=== PATIENT | female | born 1940 | race Caucasian/White ===

== ENCOUNTER 2016-08-16 10:25 | Emergency (ER) | payer OTHER ==
[2016-08-16] MEDS ORDERED: ASPIRIN PO STA (10:38)
[2016-08-16 11:08] LABS: MANUAL DIFF NEEDED? NO
[2016-08-16 11:10] LABS: BASO% 0.3 % (0.0-0.8); EOS# 0.27 X1000 (0.0-0.7); EOS% 2.7 % (0.0-10.0); HEMOGLOBIN 13.8 g/dL (12.0-16.0); IMM GRAN# 0.05 X1000 (0.0-0.04); IMM GRAN% 0.5 % (0.0-0.5); LYMPH# 3.94 X1000 (1.2-3.4); LYMPH% 39.5 % (20.5-51.1); MCH 27.2 PG (27-31); MCHC 32.9 g/dL (33-37); MCV 82.8 FL (81-99); MONO# 0.96 X1000 (0.11-0.59); MONO% 9.6 % (1.7-9.3); MPV 9.6 FL (7.4-10.4); NEUT% 47.4 % (42.2-75.2); PLT 196 X1000 (130-400); RBC 5.07 XMIL (4.2-5.4)
--- NOTE | 2016-08-16 11:10 | ED EKG INTERP ---
EKG Interpretation - EKG Time of EKG reading by physician:: 10:45 EKG Read and Signed by:: Mitchell Snow EKG Interpretation (*Must complete 3 of following elements*): Abnormal Rate: 49 Rhythm: sinus bradycardia Comments: otherwise normal ECG Attestation - Scribe Verification/Attestation Scribe:: Alejandra Houston Acting as Scribe for:: Mitchell Snow Scribe documention review:: This chart was documented by a scribe and accurately reflects the service the provider performed and the decisions made by the provider.
--- NOTE | 2016-08-16 11:11 | EKG Report ---
Test Performed on : 08/16/2016 10:45:57 AM Test Reason : CHEST PAIN Blood Pressure : / mmHG Vent. Rate : 049 BPM Atrial Rate : 049 BPM P-R Int : 158 ms QRS Dur : 084 ms QT Int : 426 ms P-R-T Axes : 039 020 042 degrees QTc Int : 384 ms Sinus bradycardia. Otherwise normal ECG When compared with ECG of 19-DEC-2014 13:02, No significant change was found Unconfirmed Result
[2016-08-16] MEDS ORDERED: DUONEB (A & A) INH ONE (11:27)
--- NOTE | 2016-08-16 11:33 | PROVIDER DOCUMENTATION ---
HPI-Chest Pain - General Chief Complaint: Chest Pain Stated Complaint: SOB/CHEST PAIN Time Seen by Provider: 08/16/16 11:09 Source: patient Allergies/Adverse Reactions: Patient Allergies Allergy/AdvReac Type Severity Reaction Status Date / Time codeine AdvReac HIVES Verified 08/16/16 10:34 latex AdvReac HIVES Verified 08/16/16 10:34 Home Medications: Home Medication List Medication Instructions Recorded Confirmed Last Taken Type Losartan/Hydrochlorothiazide 1 each PO DAILY 12/19/14 12/20/14 08/16/16 History [Hyzaar 100-12.5 Tablet] Metformin [Glucophage] 500 mg PO 4XDAY 12/19/14 12/20/14 08/16/16 History Metoprolol Succinate E.r. [Toprol 12.5 mg PO BID 12/19/14 12/20/14 08/16/16 History Xl] Levothyroxine [Synthroid] 75 microgm PO DAILY #0 tablet 12/23/14 08/16/16 Rx Albuterol Sulfate Inhaler 2 puff INH [id number] #1 inhaler 08/16/16 Unknown Rx [Ventolin Hfa] EZETIMIBE/SIMVAstatin [Vytorin 1 each PO QHS 08/16/16 08/16/16 1 Day Ago History 10/20 mg] - History of Present Illness-CP Nature of Presenting Problem: 76 yo female sent to ER by Urgent Care for chest pain, shortness of breath, and dizziness for the past 2 days. She saw her PCP on 08/07/2016 and given abx/ medrol dose pack/nasal spray/cough medicine for bronchitis and flu. She has been coughing intermittently with sputum production. She denies fever. She also received a steroid injection into left ankle by Dr. Clifton 2 days ago. Location: reports: other (side of left chest) Chest Pain Radiation: reports: no radiation Quality of Pain: reports: aching Severity in ED: moderate Onset/Duration: 2 days ago Timing: still present Context/Activities at Onset: reports: none Modifying Factors: improves with: coughing (worsens) Associated Symptoms: reports: dizziness, shortness of breath, weakness Nitro Today/Relief: no nitro taken today Aspirin Treatment Today: no aspirin today Similar Symptoms Previously?: Yes Recently Seen Here or By Another Healthcare Provider: Yes Review of Systems - Adult - REVIEW OF SYSTEMS - ADULT Constitutional: reports: no symptoms reported Eyes: reports: no symptoms reported Ears, Nose, Mouth & Throat: reports: no symptoms reported Cardiovascular: reports: no symptoms reported Respiratory: reports: see HPI, cough, shortness of breath Gastrointestinal: reports: no symptoms reported Genitourinary: reports: no symptoms reported Musculoskeletal: reports: no symptoms reported Integumentary: reports: no symptoms reported Neurological: reports: see HPI, dizziness/vertigo Psychiatric: reports: no symptoms reported Endocrine: reports: no symptoms reported Hematologic/Lymphatic: reports: no symptoms reported Allergic/Immunologic: reports: no symptoms reported All Other Systems: Reviewed and Negative Past History - Adult - PAST MEDICAL HISTORY-ADULT Review of Records: reports: Old Records Reviewed, Nursing Assessment Review, Medications Reviewed, Social history reviewed & non-contributory. Cardiovascular: reports: HTN Respiratory: reports: asthma Endocrine/Immune: reports: Diabetes, thyroid disorder Diabetes Type: Type 2 - PRIOR SURGERIES/PROCEDURES Surgical/Procedure History: reports: hysterectomy, joint replacement (knee replacement), other (fistula sx) - IMMUNIZATION STATUS Childhood Immunizations: See Nurse Assessment Flu Vaccine: See Nurse Assessment - SOCIAL HISTORY Smoking: denies, non-smoker Substance Use: none/never, denies Living Situation: family Physical Exam-General - PHYSICAL EXAM-ADULT Initial Vital Signs Reviewed: Yes - CONSTITUTIONAL General Appearance: appears well, alert, no apparent distress - EYES Eyes: PERRL/EOMI, pink conjunctivae - HEAD, EARS, NOSE, MOUTH & THROAT HENMT: normocephalic/atraumatic, moist mucous membranes, normal ENT inspection, TMs normal - RESPIRATORY Respiratory: no respiratory distress, wheezing (in left lungs). negative: accessory muscle use - CARDIOVASCULAR Cardiovascular: normal peripheral pulses - GASTROINTESTINAL (ABDOMEN) Abdominal Exam: soft - MUSCULOSKELETAL Extremity: normal inspection, no pedal edema Peripheral Pulses: radial (R): 2+, radial (L): 2+, dorsalis-pedis (R): 2+, dorsalis-pedis (L): 2+ - SKIN Integumentary: normal color, normal turgor, warm/dry - NEUROLOGIC Neurologic: grossly normal - PSYCHIATRIC Psych/Mental Status: normal mood/affect, normal thought content, normal thought process, oriented x 3 Progress - PLAN OF CARE/RESULTS Progress/Plan/Lab Results: 1200-Discussed patient case with Dr. Snow he reviewed labs and agreed with CT for PE. 1440-Discussed results/labs/dx/tx/discharge and follow up instructions with patient; she verbalized understanding. Laboratory Tests 08/16/16 08/16/16 08/16/16 10:57 10:57 10:57 WBC RBC Hgb Hct MCV MCH MCHC RDW Std Deviation Plt Count MPV Immature Gran % (Auto) Neut % (Auto) Lymph % (Auto) Mccreary % (Auto) Eos % (Auto) Baso % (Auto) Immature Gran # (Auto) Neut # (Auto) Lymph # (Auto) Mccreary # (Auto) Eos # (Auto) Baso # (Auto) D-Dimer Sodium 135 L Potassium 4.2 Chloride 98 Carbon Dioxide 24 L Anion Gap 13 BUN 24 H Creatinine 0.7 Estimated GFR/1.73 m2 > 60 BUN/Creatinine Ratio 34 Glucose 123 H Calculated Osmolality 276 Calcium 8.8 Magnesium 2.0 Total Bilirubin 0.30 AST 21 ALT 19 Alkaline Phosphatase 97 Creatine Kinase 47 Troponin T < 0.010 Cal-J-Glyqnbwskel Pept 163 Total Protein 6.3 Albumin 3.9 Globulin 2.0 Albumin/Globulin Ratio 2.0 08/16/16 08/16/16 08/16/16 10:57 10:57 13:35 WBC 9.97 RBC 5.07 Hgb 13.8 Hct 42.0 MCV 82.8 MCH 27.2 MCHC 32.9 L RDW Std Deviation 14.2 Plt Count 196 MPV 9.6 Immature Gran % (Auto) 0.5 Neut % (Auto) 47.4 Lymph % (Auto) 39.5 Mccreary % (Auto) 9.6 H Eos % (Auto) 2.7 Baso % (Auto) 0.3 Immature Gran # (Auto) 0.05 H Neut # (Auto) 4.72 Lymph # (Auto) 3.94 H Mccreary # (Auto) 0.96 H Eos # (Auto) 0.27 Baso # (Auto) 0.03 D-Dimer 0.63 H Sodium Potassium Chloride Carbon Dioxide Anion Gap BUN Creatinine Estimated GFR/1.73 m2 BUN/Creatinine Ratio Glucose Calculated Osmolality Calcium Magnesium Total Bilirubin AST ALT Alkaline Phosphatase Creatine Kinase 51 Troponin T Spg-Y-Pakfrwkaudl Pept Total Protein Albumin Globulin Albumin/Globulin Ratio 08/16/16 13:35 WBC RBC Hgb Hct MCV MCH MCHC RDW Std Deviation Plt Count MPV Immature Gran % (Auto) Neut % (Auto) Lymph % (Auto) Mccreary % (Auto) Eos % (Auto) Baso % (Auto) Immature Gran # (Auto) Neut # (Auto) Lymph # (Auto) Mccreary # (Auto) Eos # (Auto) Baso # (Auto) D-Dimer Sodium Potassium Chloride Carbon Dioxide Anion Gap BUN Creatinine Estimated GFR/1.73 m2 BUN/Creatinine Ratio Glucose Calculated Osmolality Calcium Magnesium Total Bilirubin AST ALT Alkaline Phosphatase Creatine Kinase Troponin T < 0.010 Znt-F-Zpcnscxmlyx Pept Total Protein Albumin Globulin Albumin/Globulin Ratio Orders Category Date Time Status Cardiac Monitoring DIRECTED Care 08/16/16 10:38 Active Oxygen Therapy- ED Nursing DIRECTED Care 08/16/16 10:38 Active Saline Loc NOW Care 08/16/16 10:38 Active ANGIOGRAM/PULMONARY ARTERIES [CT] Stat Exams 08/16/16 12:08 Draft CHEST-2 VIEWS [RAD] Stat Exams 08/16/16 10:38 Draft CBC WITH ELECTRONIC DIFF [HEME] Stat Lab 08/16/16 10:57 Completed CK PROFILE [SP CHEM] Stat Lab 08/16/16 10:57 Completed CK PROFILE [SP CHEM] Stat Lab 08/16/16 13:35 Completed COMPREHENSIVE METABOLIC PANEL [CHEM] Stat Lab 08/16/16 10:[address] D-DIMER PL [COAG] Stat Lab 08/16/16 10:57 Completed MAGNESIUM [CHEM] Stat Lab 08/16/16 10:57 Completed PRO B-NATRIURETIC PEPTIDE Stat Lab 08/16/16 10:57 Completed TROPONIN T Stat Lab 08/16/16 10:57 Completed TROPONIN T Stat Lab 08/16/16 13:35 Completed 0.9% Sodium Chloride Inj [Ns] 500 ml Med 08/16/16 12:08 Discontinued IV 999 mls/hr Albuterol 2.5MG/Ipratrop 0.5MG [Duoneb (A & A)] Med 08/16/16 11:27 Discontinued 6 ml INH NOW ONE Aspirin Med 08/16/16 10:38 Discontinued 325 mg PO STAT STA Aerosol Treatments Routine Oth 08/16/16 11:27 Active Aerosol Treatments Stat Oth 08/16/16 11:27 Active EKG [EKG] Stat Ther 08/16/16 10:38 Draft EKG [EKG] Stat Ther 08/16/16 12:52 Draft Vital Signs - 24 hr 08/16/16 08/16/16 10:30 12:15 Temperature 97 F L Pulse Rate 54 L 51 L Respiratory 18 18 Rate Blood Pressure 167/052 O2 Sat by Pulse 99 98 Oximetry - REASSESSMENT Reassessment #1 Time Reassessed: 14:40 (improved breath sounds bilaterally) Status: improving Reassessment Comment: patient feels better post nebs - XRAY 1 XRAY Study: Chest Impression: Normal XRAY Interpretation: Interpreted by Dr. Stack - CT/MRI 1 CT Study: Angiogram Impression: Normal (no acute disease) CT Results: Interpreted by Dr. Stack Departure - Departure Time of Disposition Order: 14:49 DIAGNOSIS: Shortness of breath, Bronchitis, Sinus congestion, Ear ache Disposition: HOME 01 Certified Medical Emergency: Emergent Condition: Fair Additional Instructions: Follow up with PCP next week. Use inhaler for shortness of breath. Use nasal spray. ED Follow Up Instructions: You have been treated by a care provider in the Emergency Department. These instructions are being provided to you so you can have an understanding of how to care for yourself upon discharge. Upon discharge from the Emergency Department, you are responsible for making arrangements for follow-up care by a physician of your choice. Take all prescribed medications as directed. Return to the Emergency Department immediately for any new or worsening symptoms. You may call the Physician Referral phone number at [phone] to obtain a list of Physicians who are taking new patients. Prescriptions: Albuterol Sulfate Inhaler [Ventolin Hfa] 2 puff INH [id number] #1 inhaler Referrals: Sky Ramírez MD [Primary Care Provider] - Attestation - Physician/ [facility] Attestation Patient care was provided by Advanced Practice Provider:: Yes Advanced Practice Provider:: Ashly Anaya Advanced Practice Provider documentation review:: The Mid-level provider documentation, treatment plan and medical decision making was reviewed by the physician who agrees with all treatment and medical decision making by the MLP.
[2016-08-16 11:42] LABS: AGAP 13; ALBUMIN 3.9 g/dL (3.5-5.0); ALKALINE PHOSPHATASE 97 U/L (32-104); BUN 24 mg/dL (8-22); CALCIUM 8.8 mg/dL (8.8-10.2); CHLORIDE 98 mmol/L (98-107); CK PROFILE 47 U/L (24-173); COSMO 276; GOT 21 U/L (10-30); GPT 19 U/L (10-36); POTASSIUM 4.2 mmol/L (3.5-5.1); SODIUM 135 mmol/L (136-145); TCO2 24 mmol/L (25-35); TOTAL PROTEIN 6.3 g/dL (6.3-8.3)
[2016-08-16] MEDS ORDERED: NS 500 ML IV ONE (12:08)
--- NOTE | 2016-08-16 12:20 | Diag Imaging Result Document ---
PROCEDURE NAME: CHEST-2 VIEWS - 08/16/2016 CHEST X-RAY, TWO VIEWS: COMPARISON: 12/19/2014. FINDINGS: The lungs are normally expanded and clear. Heart size and mediastinal contours are normal. No pneumothorax or pleural effusion. IMPRESSION: Negative exam.
--- NOTE | 2016-08-16 13:21 | Diag Imaging Result Document ---
PROCEDURE NAME: ANGIOGRAM/PULMONARY ARTERIES - 08/16/2016 CT PULMONARY ANGIOGRAM WITH INTRAVENOUS CONTRAST: A CT dose reduction protocol was used. COMPARISON: None. FINDINGS: Axial CT images of the chest were obtained after administering intravenous contrast. Coronal MIP images were generated. There is no pulmonary embolism. No mass or adenopathy. Heart and great vessels are normal. The lungs are clear. Upper abdominal images are unremarkable. Moderate degenerative changes of the thoracic spine. No acute bony lesions. IMPRESSION: No acute disease. [facility]
--- NOTE | 2016-08-16 14:09 | EKG Report ---
Test Performed on : 08/16/2016 12:52:15 PM Test Reason : repeat cardiac enzymes Blood Pressure : / mmHG Vent. Rate : 059 BPM Atrial Rate : 059 BPM P-R Int : 170 ms QRS Dur : 094 ms QT Int : 446 ms P-R-T Axes : 042 022 052 degrees QTc Int : 441 ms Sinus bradycardia. Nonspecific ST and T wave abnormality Abnormal ECG When compared with ECG of 16-AUG-2016 10:45, (Unconfirmed) QT has lengthened Unconfirmed Result
[2016-08-16 15:09] VITALS: BP 152/060
== END 2016-08-16 15:09 | disposition home or self-care (01) ==
LOC: P.ED 10:25
DX: J40 Bronchitis, not specified as acute or chronic (principal); R06.02 Shortness of breath; R09.81 Nasal congestion; H92.09 Otalgia, unspecified ear; R94.31 Abnormal electrocardiogram [ECG] [EKG]; R07.89 Other chest pain; R42 Dizziness and giddiness; R09.3 Abnormal sputum; Z79.899 Other long term (current) drug therapy; R53.1 Weakness; R05 Cough; R06.2 Wheezing; I10 Essential (primary) hypertension; E11.9 Type 2 diabetes mellitus without complications; Z96.659 Presence of unspecified artificial knee joint
CPT/HCPCS: 71020; 71275; 80053; 82550; 83735; 83880; 84484; 85025; 85379; 93005; 94640; 96360; J7040; Q9967